=== PATIENT | male | born 1945 | race Caucasian/White ===

== ENCOUNTER → 2017-01-01 | Outpatient (CLI) | payer BC, MEDICARE | END | disposition home or self-care (01) | LOC: LAB.O 09:29 | PROVIDERS: ATTEND Family Medicine | DX: Z12.5 Encounter for screening for malignant neoplasm of prostate (principal); E78.00 Pure hypercholesterolemia, unspecified; I10 Essential (primary) hypertension ==

== ENCOUNTER → 2018-03-03 | Outpatient (CLI) | payer BC, MEDICARE | END | disposition home or self-care (01) | LOC: LAB.O 11:30 | PROVIDERS: ATTEND Family Medicine | DX: I10 Essential (primary) hypertension (principal); E78.00 Pure hypercholesterolemia, unspecified; Z12.5 Encounter for screening for malignant neoplasm of prostate | CPT/HCPCS: 36415; 80053; 80061; 85025; G0103 ==

== ENCOUNTER 2018-05-22 15:59 | Emergency (ER) | payer BC, MEDICARE ==
[2018-05-22] MEDS ORDERED: TETANUS,DIPHTHERIA,PERTUSSIS 1 EA SYG IM ONE (16:45)
--- NOTE | 2018-05-22 17:15 | CT ---
EXAM DESCRIPTION: CT CERVICAL SPINE CLINICAL HISTORY: head injury COMPARISON: None Available. TECHNIQUE: Contiguous axial images of the cervical spine were obtained followed by reconstruction images.This exam was performed according to our departmental dose-optimization program, which includes automated exposure control, adjustment of the mA and/or kV according to patient size and/or use of iterative reconstruction technique. FINDINGS: There is no acute fracture or subluxation. The prevertebral soft tissues are within normal limits. IMPRESSION: No acute fracture or subluxation. Electronically signed by: Lupillo Martin 05/22/2018 5:14 PM CDT
[2018-05-22 17:45] VITALS: TEMP 98.4
--- NOTE | 2018-05-22 18:00 | CT ---
EXAM DESCRIPTION: Head CLINICAL HISTORY: head injury COMPARISON: None Available TECHNIQUE: Contiguous axial CT images of the head were obtained. Coronal and sagittal reconstructions were created from the axial data. This exam was performed according to our departmental dose-optimization program, which includes automated exposure control, adjustment of the mA and/or kV according to patient size and/or use of iterative reconstruction technique. FINDINGS: There is no evidence of acute mass, mass effect, midline shift or hemorrhage. The ventricles and extra-axial CSF spaces are unremarkable. The brain parenchyma appears normal for the patient's age. No acute abnormalities of the bones is seen. IMPRESSION: No acute intracranial abnormality. Electronically signed by: Lupillo Martin 05/22/2018 5:59 PM CDT
--- NOTE | 2018-05-22 18:07 | ED.PDOC ---
History of Present Illness - General Chief Complaint: Trauma Stated Complaint: fall Time Seen by Provider: 05/22/18 16:45 Source: patient, family Exam Limitations: other - dementia - History of Present Illness Initial Comments: tripped over a curb & struck his head. c/o neck pain & left knee abrasion Timing/Duration: constant Severity: mild Improving Factors: nothing Worsening Factors: nothing Associated Symptoms: denies symptoms Allergies/Adverse Reactions: Allergies Codeine Allergy (Verified 06/25/16 12:32) Unknown Home Medications: Ambulatory Orders Amlodipine Besylate [Norvasc] 5 mg PO BEDTIME 06/25/16 Atorvastatin Calcium [Lipitor] 5 mg PO BEDTIME 06/25/16 Calcium Carbonate-Vitamin D [Calcium/D] 1 tab PO DAILY 06/25/16 Dexlansoprazole [Dexilant] 30 mg PO BID #60 cap 06/25/16 Esomeprazole Magnesium [Nexium] 40 mg PO BEDTIME 06/25/16 Multiple Vitamin [Multi-Vitamin] 1 tab PO DAILY 06/25/16 Multiple Vitamin [Ocuvite] 1 tab PO DAILY 06/25/16 Promethazine Tab [Phenergan Tablet] 25 mg PO Q6H PRN 06/25/16 Sertraline HCl 50 mg PO BEDTIME 06/25/16 Sucralfate Tab [Carafate Tab] 1 gm PO QID 06/25/16 Vitamin E [Vitamin E Acetate] 1,000 unit PO DAILY 06/25/16 risperiDONE [RisperDAL] 0.25 mg PO BEDTIME 06/25/16 Review of Systems - Review of Systems Constitutional: States: no symptoms reported EENTM: States: no symptoms reported Respiratory: States: no symptoms reported Gastrointestinal/Abdominal: States: no symptoms reported Musculoskeletal: States: neck pain - diffuse paraspinal - not midline. Denies: back pain Skin: States: see HPI Neurological: States: see HPI. Denies: headache, numbness, paresthesia, weakness Past Medical History (General) - Patient Medical History Hx Stroke: No Hx Dementia: Yes - frontal temporalobe dementia Hx Congestive Heart Failure: No Hx Hypertension: Yes Hx Diabetes: No Hx Gastroesophageal Reflux: Yes - Venegas's esophagus Hx Cancer: Yes - melanoma, skin Hx MRSA: No - Vaccination History Hx Influenza Vaccination: Yes - 2014 Hx Pneumococcal Vaccination: Yes - Social History Hx Tobacco Use: No - Activities of Daily Living Senior Living/Assisted Living (if applicable):: [facility] Family Medical History - Family History Father Living Status: Hx Family Hypertension: Yes Hx Family;Other: dementia/Alzheimer's Physical Exam - Physical Exam General Appearance: Alert, Comfortable, No apparent distress Ears, Nose, Throat: hearing grossly normal Neck: full range of motion, supple, normal inspection - no midline tenderness, mild bilateral paraspinal tenderness Respiratory: no respiratory distress Back Exam: normal inspection, no vertebral tenderness Extremity: normal range of motion, no pedal edema, normal capillary refill, other - abrasion left knee Neurologic: binding nicker II-XII nml as tested, no motor/sensory deficits, alert, normal mood/affect Skin Exam: normal color, warm/dry Progress - Progress Progress: 05/22/18 18:04 unchanged - EKG/XRAY/CT CT Ordered: Yes - no acute process c-spine or brain CT Interpretation Call Back: No Departure - Departure Clinical Impression: Abrasion of knee, left Strain of neck muscle Qualifiers: Encounter type: initial encounter Qualified Code(s): S16.1XXA - Strain of muscle, fascia and tendon at neck level, initial encounter Head injury due to trauma Qualifiers: Encounter type: initial encounter Qualified Code(s): S09.90XA - Unspecified injury of head, initial encounter Time of Disposition: 18:06 Disposition: Discharge to Home or Self Care Condition: Fair Departure Forms: ED Discharge - Pt. Copy, Patient Portal Self Enrollment Instructions: DI for Trauma, Closed Head Injury, Cervical Muscle Strain (DC), Skin Abrasions (DC) Referrals: Tadeo Hansen MD [Primary Care Provider] - 05/24/18 Home Medications: Ambulatory Orders Amlodipine Besylate [Norvasc] 5 mg PO BEDTIME 06/25/16 Atorvastatin Calcium [Lipitor] 5 mg PO BEDTIME 06/25/16 Calcium Carbonate-Vitamin D [Calcium/D] 1 tab PO DAILY 06/25/16 Dexlansoprazole [Dexilant] 30 mg PO BID #60 cap 06/25/16 Esomeprazole Magnesium [Nexium] 40 mg PO BEDTIME 06/25/16 Multiple Vitamin [Multi-Vitamin] 1 tab PO DAILY 06/25/16 Multiple Vitamin [Ocuvite] 1 tab PO DAILY 06/25/16 Promethazine Tab [Phenergan Tablet] 25 mg PO Q6H PRN 06/25/16 Sertraline HCl 50 mg PO BEDTIME 06/25/16 Sucralfate Tab [Carafate Tab] 1 gm PO QID 06/25/16 Vitamin E [Vitamin E Acetate] 1,000 unit PO DAILY 06/25/16 risperiDONE [RisperDAL] 0.25 mg PO BEDTIME 06/25/16
[2018-05-22] MEDS ORDERED: NEOMYCIN-BACITRACIN-POLYMYXIN 0.9 GM UD TOP ONE (18:15)
[2018-05-22 19:14] VITALS: BP 174/85; O2SAT 96
== END 2018-05-22 18:11 | disposition home or self-care (01) ==
LOC: ER 15:59
DX: S09.90XA Unspecified injury of head, initial encounter (principal); S16.1XXA Strain of muscle, fascia and tendon at neck level, initial encounter; S80.812A Abrasion, left lower leg, initial encounter; G30.9 Alzheimer's disease, unspecified; F02.80 Dementia in other diseases classified elsewhere, unspecified severity, without behavioral disturbance, psychotic disturbance, mood disturbance, and anxiety; I10 Essential (primary) hypertension; K21.9 Gastro-esophageal reflux disease without esophagitis; Z85.820 Personal history of malignant melanoma of skin; Z79.899 Other long term (current) drug therapy; Z88.5 Allergy status to narcotic agent; W10.1XXA Fall (on)(from) sidewalk curb, initial encounter; Y92.89 Other specified places as the place of occurrence of the external cause